=== PATIENT | male | born 1980 | race African-American/Black ===

== ENCOUNTER 2018-11-08 23:20 | Inpatient (IN) | payer OTHER ==
--- NOTE | 2018-11-09 00:05 | HP ---
COWS - Scale Resting Pulse: 1= SD 81-100 Sweatin=Flushed/Facial Moisture Restless Observation: 0= Sits Still Pupil Size: 0= Normal to Room Light Bone or Joint Aches: 4=Acute Joint/Muscle Pain Runny Nose/ Eye Tearin= Runny Nose/Eyes GI Upset > 30mins: 3= Vomiting/Diarrhea (vomiting x 3, no diarrhea) Tremor Observation: 2= Slight Tremor Visible Yawning Observation: 0= None Anxiety or Irritability: 2=Irritable/Anxious Goose Flesh Skin: 0=Smooth Skin COWS Score: 16 CIWA Score - Admission Criteria OASAS Guidelines: Admission for Medically Managed Detox: Requires at least one of the followin. CIWA greater than 12 2. Seizures within the past 24 hours 3. Delirium tremens within the past 24 hours 4. Hallucinations within the past 24 hours 5. Acute intervention needed for co occurring medical disorder 6. Acute intervention needed for co occurring psychiatric disorder 7. Severe withdrawal that cannot be handled at a lower level of care (continued vomiting, continued diarrhea, abnormal vital signs) requiring intravenous medication and/or fluids 8. Admission ROS [facility] Chief Complaint: Heroin withdrawal symptoms Allergies/Adverse Reactions: Allergies Allergy/AdvReac Type Severity Reaction Status Date / Time No Known Drug Allergies Allergy Verified 11/09/18 01:41 Shellfish AdvReac Severe Verified 11/09/18 01:41 History of Present Illness: 38 years old male with 15 years of heroin dependence is seeking admission to detox. Patient has been to previous detox at [facility] and reports 2 years of sobriety. He has medical history of Hep. C, depression and anxiety. He reports history of suicide attempt in 2016 and blackouts. Patient denies suicidal ideation at this time. Patient's drug screen is positive for benzodiazepine but patient denies use stating that it must have been mixed with his heroin. Exam Limitations: No Limitations - Ebola screening Have you traveled outside of the country in the last 21 days: No Have you had contact with anyone from an Ebola affected area: No Have you been sick,other than usual withdrawal symptoms: No Do you have a fever: No - Review of Systems Constitutional: Chills, Loss of Appetite, Night Sweats EENT: reports: Nose Congestion Respiratory: reports: No Symptoms reported Cardiac: reports: No Symptoms Reported GI: reports: Nausea, Poor Appetite, Poor Fluid Intake, Vomiting ( x 3), Abdominal cramping : reports: No Symptoms Reported Musculoskeletal: reports: Muscle Pain Integumentary: reports: Dryness, Flushing Neuro: reports: Tremors Endocrine: reports: No Symptoms Reported Hematology: reports: No Symptoms Reported Psychiatric: reports: Orientated x3, Anxious Other Systems: Reviewed and Negative Patient History - Patient Medical History Hx Anemia: No Hx Asthma: No Hx Chronic Obstructive Pulmonary Disease (COPD): No Hx Cancer: No Hx Cardiac Disorders: No Hx Congestive Heart Failure: No Hx Hypertension: No Hx Hypercholesterolemia: No Hx Pacemaker: No HX Cerebrovascular Accident: No Hx Seizures: No Hx Diabetes: No Hx Gastrointestinal Disorders: No Hx Genitourinary Disorders: No Hx Sexually Transmitted Disorders: No Hx Renal Disease (ESRD): No Hx Thyroid Disease: No Hx Human Immunodeficiency Virus (HIV): No Hx Hepatitis C: Yes (Not treated) Hx Depression: Yes (Not on medication) Hx Suicide Attempt: Yes (February 2016 - hospitalized 30days [facility]. Denies suicidal ideation ) Hx Bipolar Disorder: Yes Hx Schizophrenia: No Other Medical History: Anxiety - Not on medication - Patient Surgical History Past Surgical History: No Hx Neurologic Surgery: No - PPD History Previous Implant?: Yes Documented Results: Negative w/o proof Date: 07/30/16 PPD to be Administered?: Yes - Reproductive History Patient is a Female of Child Bearing Age (11 -55 yrs old): No (Male) - Smoking Cessation Smoking history: Current every day smoker Have you smoked in the past 12 months: Yes Aproximately how many cigarettes per day: 4 Hx Chewing Tobacco Use: No Initiated information on smoking cessation: Yes 'Breaking Loose' booklet given: 11/09/18 - Substance & Tx. History Hx Alcohol Use: No Hx Substance Use: Yes Substance Use Type: Cocaine, Heroin, Marijuana, Opiates Hx Substance Use Treatment: Yes ([facility]) - Substances Abused Heroin Route: Injection Frequency: Daily Amount used: 35 bags Age of first use: 13 Date of Last Use: 11/08/18 Family Disease History - Family Disease History Family History: Denies Admission Physical Exam BHS - Physical General Appearance: Yes: Moderate Distress, Tremorous, Irritable, Sweating HEENTM: Yes: EOMI, Normal ENT Inspection, Normal Voice, LAURA Respiratory: Yes: Lungs Clear, Normal Breath Sounds, No Respiratory Distress Neck: Yes: Supple Breast: Yes: Breast Exam Deferred Cardiology: Yes: Tachycardia Abdominal: Yes: Normal Bowel Sounds Genitourinary: Yes: Within Normal Limits Back: Yes: Normal Inspection Musculoskeletal: Yes: Within Normal Limits Extremities: Yes: Tremors Neurological: Yes: mysql database developer II-XII NML intact, Alert, Normal Mood/Affect Integumentary: Yes: Warm Lymphatic: Yes: Within Normal Limits - Diagnostic (1) Anxiety Current Visit: Yes Status: Chronic (2) Cocaine dependence Current Visit: Yes Status: Chronic Qualifiers: Substance use status: uncomplicated Qualified Code(s): F14.20 - Cocaine dependence, uncomplicated (3) Nicotine dependence Current Visit: Yes Status: Chronic Qualifiers: Nicotine product type: cigarettes Substance use status: uncomplicated Qualified Code(s): F17.210 - Nicotine dependence, cigarettes, uncomplicated (4) Opioid dependence with withdrawal Current Visit: Yes Status: Chronic (5) Hepatitis C Current Visit: Yes Status: Chronic Qualifiers: Viral hepatitis chronicity: chronic Hepatic coma status: without hepatic coma Qualified Code(s): B18.2 - Chronic viral hepatitis C Cleared for Admission [facility]HS - Detox or Rehab [facility] Level of Care: Medically Managed Detox Regimen/Protocol: Methadone [facility] Breath Alcohol Content Breath Alcohol Content: 0 Inpatient Rehab Admission - Rehab Decision to Admit Inpatient rehab admission?: No
[2018-11-09 00:14] VITALS: BMI 25.5
[2018-11-09] MEDS ORDERED: MAGNESIUM CITRATE 300 ML BOTTLE PO PRN (00:19)
[2018-11-09] MEDS ORDERED: MENTHOL/PHENOL 1 EACH UD MM PRN (00:19)
[2018-11-09] MEDS ORDERED: MAG HYDROX/AL HYDROX/SIMETH 30 ML UNIT-DOSE CUP PO PRN (00:19)
[2018-11-09] MEDS ORDERED: METHOCARBAMOL 500 MG TABLET PO PRN (00:19)
[2018-11-09] MEDS ORDERED: ACETAMINOPHEN 325 MG TABLET (FP) PO PRN ×2 (00:19)
[2018-11-09] MEDS ORDERED: MAGNESIUM HYDROX 2400MG/30ML ORAL SUSPENSION 30 ML CUP PO PRN (00:19)
[2018-11-09] MEDS ORDERED: IBUPROFEN 400 MG TABLET (FP) PO PRN (00:19)
[2018-11-09] MEDS ORDERED: BISMUTH SUBSALICYLATE 524 MG/30 ML UD PO PRN (00:19)
[2018-11-09] MEDS ORDERED: cloNIDine HCL 0.1 MG TABLET PO PRN (00:23)
[2018-11-09] MEDS ORDERED: METHADONE HCL 10 MG TABLET (FOR DETOX USE ONLY) PO ONE ×2 (01:15→10:00)
[2018-11-09] MEDS: NICOTINE 14 MG/24 HOURS TOPICAL PATCH TD SCH (10:39)
[2018-11-09] MEDS: PRENATAL VITAMINS W/ FOLIC ACID TABLET (FP) PO SCH (10:39)
[2018-11-09] MEDS: hydrOXYzine PAMOATE 25 MG CAPSULE (FP) PO PRN (12:23)
[2018-11-09] MEDS: NICOTINE POLACRILEX 2 MG GUM BUC PRN (12:56)
--- NOTE | 2018-11-09 15:00 | PN ---
S CIWA - CIWA Score Nausea/Vomitin-No Nausea/No Vomiting Muscle Tremors: 2 Anxiety: 3 Agitation: 2 Paroxysmal Sweats: 1-Minimal Palms Moist Orientation: 1-Uncertain about Date Tacttile Disturbances: 0-None Auditory Disturbances: 0-None Visual Disturbances: 0-None Headache: 2-Mild CIWA-Ar Total Score: 11 BHS Progress Note (SOAP) Subjective: body ache joints stiffness tremor stuffy nose Objective: 11/09/18 15:00 Vital Signs Temperature 98.1 F 11/09/18 13:48 Pulse Rate 70 11/09/18 13:48 Respiratory Rate 16 11/09/18 13:48 Blood Pressure 118/68 11/09/18 13:48 O2 Sat by Pulse Oximetry (%) 11/09/18 15:01 lab will be drawn 11/10/18 Assessment: 11/09/18 15:01 withdrawal sx Plan: continue detox
[2018-11-09] MEDS: THIAMINE HCL 100 MG TABLET (FP) PO SCH (22:05)
[2018-11-10] MEDS ORDERED: METHADONE HCL 10 MG TABLET (FOR DETOX USE ONLY) PO ONE (10:00)
[2018-11-10] MEDS: PRENATAL VITAMINS W/ FOLIC ACID TABLET (FP) PO SCH (10:08)
[2018-11-10] MEDS: NICOTINE POLACRILEX 2 MG GUM BUC PRN ×3 (10:08→17:57)
[2018-11-10] MEDS: NICOTINE 14 MG/24 HOURS TOPICAL PATCH TD SCH (10:08)
[2018-11-10] MEDS: hydrOXYzine PAMOATE 25 MG CAPSULE (FP) PO PRN ×2 (10:09→22:35)
--- NOTE | 2018-11-10 12:12 | PN ---
BHS COWS - Scale Resting Pulse: 0= MA 80 or Below Sweatin= Chills/Flushing Restless Observation: 0= Sits Still Pupil Size: 1= Pupils >than Normal Bone or Joint Aches: 1= Mild Discomfort Runny Nose/ Eye Tearin= Nasal Congestion GI Upset > 30mins: 1= Stomach Cramp Tremor Observation of Outstretched Hands: 2= Slight Tremor Visible Yawning Observation: 2= >3x During Session Anxiety or Irritability: 2=Irritable/Anxious Goose Flesh Skin: 0=Smooth Skin COWS Score: 11
--- NOTE | 2018-11-10 12:13 | PN ---
BHS COWS - Scale Resting Pulse: 0= MA 80 or Below Sweatin= Chills/Flushing Restless Observation: 0= Sits Still Pupil Size: 1= Pupils >than Normal Bone or Joint Aches: 1= Mild Discomfort Runny Nose/ Eye Tearin= Nasal Congestion GI Upset > 30mins: 1= Stomach Cramp Tremor Observation of Outstretched Hands: 1= Tremor [place], Not Seen Yawning Observation: 1= 1-2x During Session Anxiety or Irritability: 1=Feels Anxious/Irritable Goose Flesh Skin: 0=Smooth Skin COWS Score: 8 BHS Progress Note (SOAP) Subjective: body ache muscle cramping stuffy nose Objective: 11/10/18 12:13 Vital Signs Temperature 97.3 F L 11/10/18 09:05 Pulse Rate 75 11/10/18 09:05 Respiratory Rate 18 11/10/18 09:05 Blood Pressure 118/64 11/10/18 09:05 O2 Sat by Pulse Oximetry (%) 11/10/18 12:16 order lab for admission Assessment: 11/10/18 12:16 withdrawal sx Plan: continue detox
[2018-11-10] MEDS: MELATONIN 5 MG TABLETS PO PRN (22:35)
[2018-11-10] MEDS: THIAMINE HCL 100 MG TABLET (FP) PO SCH (22:36)
[2018-11-11] MEDS ORDERED: METHADONE HCL 10 MG TABLET (FOR DETOX USE ONLY) PO ONE (10:00)
[2018-11-11] MEDS: PRENATAL VITAMINS W/ FOLIC ACID TABLET (FP) PO SCH (10:01)
[2018-11-11] MEDS: NICOTINE 14 MG/24 HOURS TOPICAL PATCH TD SCH (10:02)
[2018-11-11] MEDS: NICOTINE POLACRILEX 2 MG GUM BUC PRN ×4 (10:02→19:47)
[2018-11-11 11:24] LABS: HEMATOCRIT 39.9 % (35.4-49); HEMOGLOBIN 13.3 GM/dL (11.7-16.9); MCH 29.4 pg (25.7-33.7); MCHC 33.4 g/dl (32.0-35.9); MEAN PLT VOLUME 9.3 fl (7.5-11.1); PLATELET COUNT 333 K/MM3 (134-434); RBC 4.53 M/mm3 (4.00-5.60); RDW 15.7 % (11.9-15.9); WHITE BLOOD COUNT 5.7 K/mm3 (4.0-10.0)
[2018-11-11 11:44] LABS: ALBUMIN 3.1 g/dl (3.4-5.0); ALK PHOS 92 U/L (45-117); ANION GAP 7 MMOL/L (8-16); BILIRUBIN,TOTAL 0.2 mg/dL (0.2-1); BLOOD UREA NITROGEN 7 mg/dL (7-18); CALCIUM 8.5 mg/dL (8.5-10.1); CHLORIDE 109 mmol/L (98-107); CO2 26 mmol/L (21-32); CREATININE 0.9 mg/dL (0.55-1.3); GLUCOSE,RANDOM 100 mg/dL (74-106); POTASSIUM 4.1 mmol/L (3.5-5.1); SGOT/AST 21 U/L (15-37); SGPT/ALT 30 U/L (13-61); SODIUM 141 mmol/L (136-145); TOT PROT 7.1 g/dl (6.4-8.2)
--- NOTE | 2018-11-11 15:19 | PN ---
BHS COWS - Scale Resting Pulse: 0= AR 80 or Below Sweatin= Chills/Flushing Restless Observation: 0= Sits Still Pupil Size: 0= Normal to Room Light Bone or Joint Aches: 1= Mild Discomfort Runny Nose/ Eye Tearin= Nasal Congestion GI Upset > 30mins: 0= None Tremor Observation of Outstretched Hands: 1= Tremor [place], Not Seen Yawning Observation: 0= None Anxiety or Irritability: 0= None Goose Flesh Skin: 0=Smooth Skin COWS Score: 4 BHS Progress Note (SOAP) Subjective: reporting sleep better last night determine not to misuse opiate discuss medicaion assisted treatment program Objective: 11/11/18 15:22 Vital Signs Temperature 98.9 F 11/11/18 13:37 Pulse Rate 84 11/11/18 13:37 Respiratory Rate 18 11/11/18 13:37 Blood Pressure 110/69 11/11/18 13:37 O2 Sat by Pulse Oximetry (%) Laboratory Last Values WBC 5.7 K/mm3 (4.0-10.0) 11/11/18 07:30 RBC 4.53 M/mm3 (4.00-5.60) 11/11/18 07:30 Hgb 13.3 GM/dL (11.7-16.9) 11/11/18 07:30 Hct 39.9 % (35.4-49) 11/11/18 07:30 MCV 88.0 fl (80-96) 11/11/18 07:30 MCH 29.4 pg (25.7-33.7) 11/11/18 07:30 MCHC 33.4 g/dl (32.0-35.9) 11/11/18 07:30 RDW 15.7 % (11.9-15.9) 11/11/18 07:30 Plt Count 333 K/MM3 (134-434) 11/11/18 07:30 MPV 9.3 fl (7.5-11.1) 11/11/18 07:30 Sodium 141 mmol/L (136-145) 11/11/18 07:30 Potassium 4.1 mmol/L (3.5-5.1) 11/11/18 07:30 Chloride 109 mmol/L (98-107) H 11/11/18 07:30 Carbon Dioxide 26 mmol/L (21-32) 11/11/18 07:30 Anion Gap 7 MMOL/L (8-16) L 11/11/18 07:30 BUN 7 mg/dL (7-18) 11/11/18 07:30 Creatinine 0.9 mg/dL (0.55-1.3) 11/11/18 07:30 Creat Clearance w eGFR 94.95 (>60) 11/11/18 07:30 Random Glucose 100 mg/dL (74-106) 11/11/18 07:30 Calcium 8.5 mg/dL (8.5-10.1) 11/11/18 07:30 Total Bilirubin 0.2 mg/dL (0.2-1) 11/11/18 07:30 AST 21 U/L (15-37) 11/11/18 07:30 ALT 30 U/L (13-61) 11/11/18 07:30 Alkaline Phosphatase 92 U/L (45-117) 11/11/18 07:30 Total Protein 7.1 g/dl (6.4-8.2) 11/11/18 07:30 Albumin 3.1 g/dl (3.4-5.0) L 11/11/18 07:30 RPR Titer Nonreactive (NONREACTIVE) 11/11/18 07:30 lab noed Assessment: 11/11/18 15:22 withdrawal sx Plan: continue detox
[2018-11-11] MEDS: hydrOXYzine PAMOATE 25 MG CAPSULE (FP) PO PRN (17:35)
[2018-11-11] MEDS: THIAMINE HCL 100 MG TABLET (FP) PO SCH (22:24)
[2018-11-11] MEDS: MELATONIN 5 MG TABLETS PO PRN (22:24)
[2018-11-12] MEDS ORDERED: METHADONE HCL 10 MG TABLET (FOR DETOX USE ONLY) PO ONE (10:00)
[2018-11-12] MEDS: PRENATAL VITAMINS W/ FOLIC ACID TABLET (FP) PO SCH (10:11)
[2018-11-12] MEDS: NICOTINE POLACRILEX 2 MG GUM BUC PRN ×3 (10:11→16:34)
[2018-11-12] MEDS: hydrOXYzine PAMOATE 25 MG CAPSULE (FP) PO PRN (10:11)
[2018-11-12] MEDS: NICOTINE 14 MG/24 HOURS TOPICAL PATCH TD SCH (10:11)
--- NOTE | 2018-11-12 15:38 | PN ---
BHS Progress Note (SOAP) Subjective: pt doing well, going home tomorrow, d/w pt MAT treatment with suboxone or methadone O: Vital Signs - 24 hr 11/11/18 11/11/18 11/12/18 17:24 21:47 00:30 Temperature 98.1 F 98 F Pulse Rate 81 84 Respiratory 18 18 18 Rate Blood Pressure 109/75 102/70 11/12/18 11/12/18 11/12/18 03:30 06:55 10:27 Temperature 97.7 F 98.4 F Pulse Rate 66 56 L Respiratory 18 18 18 Rate Blood Pressure 98/54 L 100/58 L 11/12/18 14:18 Temperature 96.7 F L Pulse Rate 64 Respiratory 20 Rate Blood Pressure 110/70 Laboratory Tests 11/11/18 11/11/18 11/11/18 07:30 07:30 07:30 WBC 5.7 RBC 4.53 Hgb 13.3 Hct 39.9 MCV 88.0 MCH 29.4 MCHC 33.4 RDW 15.7 Plt Count 333 MPV 9.3 Sodium 141 Potassium 4.1 Chloride 109 H Carbon Dioxide 26 Anion Gap 7 L BUN 7 Creatinine 0.9 Creat Clearance w eGFR 94.95 Random Glucose 100 Calcium 8.5 Total Bilirubin 0.2 AST 21 ALT 30 Alkaline Phosphatase 92 Total Protein 7.1 Albumin 3.1 L RPR Titer Nonreactive a/p: conitnue detox protocol d/c tomorrow
[2018-11-12 21:08] VITALS: TEMP 98.1
[2018-11-12] MEDS: THIAMINE HCL 100 MG TABLET (FP) PO SCH (23:15)
[2018-11-13] MEDS: NICOTINE POLACRILEX 2 MG GUM BUC PRN (05:47)
[2018-11-13] MEDS ORDERED: METHADONE HCL 5 MG TABLET (FOR DETOX USE ONLY) PO ONE (06:00)
[2018-11-13 06:23] VITALS: BP 96/60; PULSE 69
--- NOTE | 2018-11-13 14:38 | DS ---
[facility] Detox Discharge Summary Admission Date: 11/09/18 Discharge Date: 11/13/18 - History Present History: Opioid Dependence Additional Comments: 38 years old male admitted on 11/08/18 for opiate withdrawal stabilization completed detox regimen aftercare as per counselor arranged Pertinent Past History: patient left the detox unit early today expert medical writer has not seen nor evaluate the patient - Physical Exam Results Vital Signs: Vital Signs Temperature 98.1 F 11/13/18 06:23 Pulse Rate 69 11/13/18 06:23 Respiratory Rate 18 11/13/18 06:23 Blood Pressure 96/60 11/13/18 06:23 O2 Sat by Pulse Oximetry (%) Pertinent Admission Physical Exam Findings: opiate withdrawal sx Laboratory Last Values WBC 5.7 K/mm3 (4.0-10.0) 11/11/18 07:30 RBC 4.53 M/mm3 (4.00-5.60) 11/11/18 07:30 Hgb 13.3 GM/dL (11.7-16.9) 11/11/18 07:30 Hct 39.9 % (35.4-49) 11/11/18 07:30 MCV 88.0 fl (80-96) 11/11/18 07:30 MCH 29.4 pg (25.7-33.7) 11/11/18 07:30 MCHC 33.4 g/dl (32.0-35.9) 11/11/18 07:30 RDW 15.7 % (11.9-15.9) 11/11/18 07:30 Plt Count 333 K/MM3 (134-434) 11/11/18 07:30 MPV 9.3 fl (7.5-11.1) 11/11/18 07:30 Sodium 141 mmol/L (136-145) 11/11/18 07:30 Potassium 4.1 mmol/L (3.5-5.1) 11/11/18 07:30 Chloride 109 mmol/L (98-107) H 11/11/18 07:30 Carbon Dioxide 26 mmol/L (21-32) 11/11/18 07:30 Anion Gap 7 MMOL/L (8-16) L 11/11/18 07:30 BUN 7 mg/dL (7-18) 11/11/18 07:30 Creatinine 0.9 mg/dL (0.55-1.3) 11/11/18 07:30 Creat Clearance w eGFR 94.95 (>60) 11/11/18 07:30 Random Glucose 100 mg/dL (74-106) 11/11/18 07:30 Calcium 8.5 mg/dL (8.5-10.1) 11/11/18 07:30 Total Bilirubin 0.2 mg/dL (0.2-1) 11/11/18 07:30 AST 21 U/L (15-37) 11/11/18 07:30 ALT 30 U/L (13-61) 11/11/18 07:30 Alkaline Phosphatase 92 U/L (45-117) 11/11/18 07:30 Total Protein 7.1 g/dl (6.4-8.2) 11/11/18 07:30 Albumin 3.1 g/dl (3.4-5.0) L 11/11/18 07:30 RPR Titer Nonreactive (NONREACTIVE) 11/11/18 07:30 lab noted - Treatment Hospital Course: Detox Protocol Followed, Detoxed Safely, Responded well, Discharged Condition Good, Rehab Referral Accepted Patient has Accepted a Rehab Referral to: as per counselor arrangement - Medication Discharge Medications: Ambulatory Orders Quetiapine Fumarate "Xr" [Seroquel XR] 150 mg PO DAILY 07/28/16 - Diagnosis (1) Substance induced mood disorder Status: Suspected (2) Hepatitis C Status: Chronic Qualifiers: Viral hepatitis chronicity: chronic Hepatic coma status: without hepatic coma Qualified Code(s): B18.2 - Chronic viral hepatitis C (3) Nicotine dependence Status: Acute Qualifiers: Nicotine product type: cigarettes Substance use status: in withdrawal Qualified Code(s): F17.213 - Nicotine dependence, cigarettes, with withdrawal (4) Opioid dependence with withdrawal Status: Acute - AMA Did Patient Leave Against Medical Advice: No
== END 2018-11-13 06:50 | disposition home or self-care (01) | DRG 773 ==
LOC: YASAS 23:20 → Y3N 11-09 00:07
PROVIDERS: ADMIT Surgery; ATTEND Surgery
PROC: HZ2ZZZZ Detoxification Services for Substance Abuse Treatment (ICD-10-PCS; principal; 2018-11-09)
DX: F11.23 Opioid dependence with withdrawal (principal); F17.213 Nicotine dependence, cigarettes, with withdrawal; F19.24 Other psychoactive substance dependence with psychoactive substance-induced mood disorder; F31.9 Bipolar disorder, unspecified; F41.9 Anxiety disorder, unspecified; B18.2 Chronic viral hepatitis C; Z91.013 Allergy to seafood; Z91.5 Personal history of self-harm; Z59.0 Homelessness
CPT/HCPCS: 36415; 80053; 85027; 86593; J0735